=== PATIENT | female | born 1955 | race Caucasian/White ===

== ENCOUNTER 2020-03-16 13:45 | Emergency (ER) | payer MEDICARE, OTHER ==
[~2020-03-16] VITALS: Ht 167.6 cm; Wt 78.0 kg
--- NOTE | 2020-03-16 14:06 | NUR ---
Dr. Valencia at bedside for MSE
--- NOTE | 2020-03-16 14:27 | NUR ---
Patient discharged to home in stable condition. Written and verbal after care instructions given. Patient verbalizes understanding of instructions. Stressed follow up or return to ER for worsening s/s. Patient ambulating with steady gait. NAD noted
[2020-03-16] MEDS ORDERED: LIDOCAINE HCL 2% 20 ML VIAL TP ONE (14:30)
[2020-03-16 14:32] VITALS: BP 126/66
== END 2020-03-16 14:27 | disposition home or self-care (01) ==
LOC: ER 13:56
DX: S01.511A Laceration without foreign body of lip, initial encounter (principal); W18.39XA Other fall on same level, initial encounter; Y92.89 Other specified places as the place of occurrence of the external cause
CPT/HCPCS: 12011; 99282; J3490; A4663

== ENCOUNTER 2020-03-18 15:03 | Emergency (ER) | payer MEDICARE ==
[~2020-03-18] VITALS: Ht 167.6 cm; Wt 78.0 kg
--- NOTE | 2020-03-18 15:24 | NUR ---
Patient discharged to home in stable condition. Written and verbal after care instructions given. Patient verbalizes understanding of instructions. Stressed follow up or return to ER for worsening s/s.
== END 2020-03-18 15:26 | disposition home or self-care (01) ==
LOC: ER 15:03
DX: S01.511D Laceration without foreign body of lip, subsequent encounter (principal); S00.83XD Contusion of other part of head, subsequent encounter; W01.0XXD Fall on same level from slipping, tripping and stumbling without subsequent striking against object, subsequent encounter; M79.7 Fibromyalgia; F41.9 Anxiety disorder, unspecified
CPT/HCPCS: A4663

== ENCOUNTER 2020-03-25 16:52 | Emergency (ER) | payer MEDICARE ==
[~2020-03-25] VITALS: Ht 167.6 cm; Wt 78.0 kg
--- NOTE | 2020-03-25 17:10 | NUR ---
Dr. Ashford at bedside for MSE
[2020-03-25 17:22] VITALS: BP 139/75
== END 2020-03-25 17:20 | disposition home or self-care (01) ==
LOC: ER 16:54
DX: S01.511D Laceration without foreign body of lip, subsequent encounter (principal); W19.XXXD Unspecified fall, subsequent encounter
CPT/HCPCS: A4663

== ENCOUNTER 2022-03-20 16:27 | Emergency (ER) | payer MEDICARE ==
[~2022-03-20] VITALS: Ht 167.6 cm; Wt 68.0 kg
--- NOTE | 2022-03-20 17:31 | NUR ---
[employer] Instructor assumes care: 1st contact with patient in ER bed 3, AOX4, calm & breathing easily. Lab staff [email or web address], drawing her blood. Patient is still for EKG.
[2022-03-20 17:50] LABS: HEMATOCRIT 38.8 % (31.2-41.9); MEAN CORPUSCULAR HEMOGLOBIN 30.3 uug (24.7-32.8); MEAN CORPUSCULAR VOLUME 92.5 fL (75.5-95.3); PLATELET COUNT (AUTO) 321 K/uL (179-408)
[2022-03-20 18:08] LABS: CARBON DIOXIDE 26 mmol/L (21-32); CHLORIDE 104 mmol/L (98-107); GLUCOSE 74 mg/dL (74-106); POTASSIUM 3.8 mmol/L (3.5-5.1); UREA NITROGEN, BLOOD 12 mg/dL (7-18)
[2022-03-20 18:20] LABS: ALANINE AMINOTRANSFERASE 54 U/L (14-59); ALKALINE PHOSPHATASE 69 U/L (50-136); ASPARTATE AMINOTRANSFERASE 72 U/L (15-37); BILIRUBIN,DIRECT 0.1 mg/dL (0.0-0.2); BILIRUBIN,TOTAL 0.5 mg/dL (0.2-1.0); TOTAL PROTEIN, SERUM 7.6 g/dL (6.4-8.2)
[2022-03-20] MEDS ORDERED: CALC3.8S BNOSTRILS (18:26)
--- NOTE | 2022-03-20 19:23 | NUR ---
Patient discharged to home in stable condition. Written and verbal after care instructions given. Patient verbalizes understanding of instructions. Stressed follow up or return to ER for worsening s/s. Patient out of ER with steady gait, no acute signs of distress, VSS, all belongings taken, to be driven home by daughter via private vehicle.
[2022-03-20 19:24] VITALS: BP 115/77
== END 2022-03-20 19:24 | disposition home or self-care (01) ==
LOC: ER 16:27
DX: S09.90XA Unspecified injury of head, initial encounter (principal); T14.8XXA Other injury of unspecified body region, initial encounter; S40.022A Contusion of left upper arm, initial encounter; V49.49XA Driver injured in collision with other motor vehicles in traffic accident, initial encounter; Y92.410 Unspecified street and highway as the place of occurrence of the external cause; E06.3 Autoimmune thyroiditis; R73.03 Prediabetes; E78.00 Pure hypercholesterolemia, unspecified; Z86.03 Personal history of neoplasm of uncertain behavior
CPT/HCPCS: 36415; 70450; 71045; 72125; 72131; 73030; 73080; 73090; 84484; 85025; 85730; 93005; A4663

== ENCOUNTER 2022-08-06 16:31 | Inpatient (IN) | payer MEDICARE, OTHER ==
[~2022-08-06] VITALS: Ht 167.6 cm; Wt 68.0 kg
[~2022-08-06 16:31] MED LIST: CALC3.8S BNOSTRILS
[2022-08-06] MEDS ORDERED: ACETAMINOPHEN ES 500 MG TABLET PO ONE (17:30)
[2022-08-06] MEDS ORDERED: ACETAMINOPHEN ES 500 MG TABLET ONE (17:32)
[2022-08-06] MEDS ORDERED: MECLIZINE HCL 25 MG TABLET PO ONE (19:45)
[2022-08-06] MEDS ORDERED: ACETAMINOPHEN 325 MG TABLET PO ONE (19:45)
[2022-08-06 20:06] LABS: HEMATOCRIT 38.3 % (31.2-41.9); MEAN CORPUSCULAR HEMOGLOBIN 29.3 uug (24.7-32.8); PLATELET COUNT (AUTO) 416 K/uL (179-408)
[2022-08-06 20:26] LABS: BILIRUBIN,TOTAL 0.4 mg/dL (0.2-1.0); CREATININE 0.8 mg/dL (0.6-1.3); POTASSIUM 4.1 mmol/L (3.5-5.1); TOTAL PROTEIN, SERUM 7.3 g/dL (6.4-8.2)
--- NOTE | 2022-08-06 20:34 | NUR ---
Called [facility] for panel call. Dr. Nicole damage prevention coordinator.
[2022-08-06] MEDS ORDERED: MECLIZINE HCL 25 MG TABLET ONE (20:36)
[2022-08-06] MEDS ORDERED: ACETAMINOPHEN 325 MG TABLET ONE ×2 (20:36→20:37)
[2022-08-06] MEDS ORDERED: KETOROLAC TROMETHAMINE 15 MG INJ IVP ONE (20:45)
[2022-08-06] MEDS ORDERED: IV NORMAL SALINE 1000 ML BAG IV ONE (20:45)
[2022-08-06] MEDS ORDERED: KETOROLAC TROMETHAMINE 15 MG INJ ONE (20:54)
[2022-08-06 20:56] LABS: ETHANOL < 3 MG/DL (0-0)
[2022-08-06] MEDS ORDERED: MORPHINE SULFATE 2 MG/1 ML DISP.SYRIN IV PRN (23:30)
[2022-08-06] MEDS ORDERED: MAGNESIUM HYDROXIDE 30 ML LIQUID UDC PO PRN (23:30)
[2022-08-06] MEDS ORDERED: ACETAMINOPHEN 325 MG TABLET PO PRN (23:30)
[2022-08-06] MEDS ORDERED: IV NS 1000 ML 1,000 ML IV PRN (23:30)
[2022-08-06] MEDS ORDERED: ONDANSETRON 4 MG/2 ML VIAL IV PRN (23:30)
--- NOTE | 2022-08-06 23:38 | NUR ---
Patient pulled out IV.
[2022-08-07 00:49] LABS: *BILIRUBIN,URIN NEGATIVE (NEGATIVE); *BLOOD, URINE NEGATIVE (NEGATIVE); *CLARITY,URINE CLEAR (CLEAR); *COLOR,URINE YELLOW (YELLOW); *KETONES,URINE NEGATIVE (NEGATIVE); *UROBILINOGEN,URINE 0.2 E.U./dl (NORMAL); LEUKOCYTE ESTERASE ,URINE NEGATIVE (NEGATIVE); NITRITE, URINE NEGATIVE (NEGATIVE); PH,URINE 5.5 (5.0-8.0); UGLUCOSE NEGATIVE (NEGATIVE)
[2022-08-07 01:01] LABS: *AMPHETAMINE, URINE NEGATIVE (NEGATIVE); *CANNABINOID, URINE POSITIVE (NEGATIVE); *COCCAINE, URINE NEGATIVE (NEGATIVE); *PHENCYCLIDINE SCREEN,URINE NEGATIVE (NEGATIVE)
--- NOTE | 2022-08-07 03:58 | NUR ---
Patient is in room sleeping
[2022-08-07] MEDS ORDERED: HYDROCODONE/APAP 5-325MG TABLET ONE ×2 (04:20→08:59)
[2022-08-07] MEDS: HYDROCODONE/APAP 5-325MG TABLET PO PRN ×3 (04:29→23:15)
[2022-08-07] MEDS ORDERED: PANTOPRAZOLE SODIUM 40 MG TABLET.DR PO ONE (07:15)
[2022-08-07] MEDS: PANTOPRAZOLE SODIUM 40 MG TABLET.DR PO SCH (07:19)
--- NOTE | 2022-08-07 07:20 | NUR ---
Gave report to Jarad SALAZAR.
[2022-08-07 07:56] LABS: HEMATOCRIT 37.6 % (31.2-41.9); MEAN CORPUSCULAR HEMOGLOBIN 29.9 uug (24.7-32.8); MEAN CORPUSCULAR VOLUME 91.4 fL (75.5-95.3); PLATELET COUNT (AUTO) 397 K/uL (179-408)
[2022-08-07 07:57] LABS: THYROID STIMULATING HORMONE 0.611 mIU/mL (0.358-3.740)
[2022-08-07 08:11] LABS: BILIRUBIN,TOTAL 0.4 mg/dL (0.2-1.0); CREATININE 0.8 mg/dL (0.6-1.3); MAGNESIUM 2.1 mg/dL (1.8-2.4); PHOSPHOROUS 4.1 mg/dL (2.5-4.9); POTASSIUM 4.2 mmol/L (3.5-5.1); TOTAL PROTEIN, SERUM 6.5 g/dL (6.4-8.2)
--- NOTE | 2022-08-07 10:16 | NUR ---
Gave pt breakfast tray.
[2022-08-07] MEDS ORDERED: LEVO100T10 PO (11:38)
[2022-08-07] MEDS ORDERED: TIZA4TAB5 PO (11:42)
[2022-08-07] MEDS ORDERED: LAMO200T10 PO (11:42)
[2022-08-07] MEDS ORDERED: CLON2TAB11 PO (11:42)
--- NOTE | 2022-08-07 13:20 | NUR ---
Assisted pt to restroom. Gave pt lunch tray. Pt resting in bed, no further complaints -- pain 5/10, acceptable.
[2022-08-07] MEDS ORDERED: ACETAMINOPHEN 325 MG TABLET ONE (15:04)
--- NOTE | 2022-08-07 15:15 | NUR ---
Pt sleeping in bed, no distress noted.
--- NOTE | 2022-08-07 17:28 | NUR ---
Gave pt dinner tray. Called to 3rd floor for room, assigned pt to 325. Will call report shortly
--- NOTE | 2022-08-07 18:22 | NUR ---
Gave Report to MARTIN Lugo for inpatient services. Safety measures in place. Will continue to monitor.
--- NOTE | 2022-08-07 19:01 | NUR ---
Gave shift report to Dariusz (MARTIN). Informed him of Pt transfer to Rm 325.
[2022-08-07 20:00] VITALS: BP 156/81
--- NOTE | 2022-08-07 20:10 | NUR ---
PATIENT ADMITTED FROM ER IN STABLE CONDITION. AOX4 AND ABLE TO MAKE NEEDS KNOWN. GENTLY TRANSFER TO BED AND MADE COMFORTABLE. ALL NEEDS MET AND ATTENDED. BELONGINGS INVENTORIED. WILL CONTINUE TO MONITOR.
[2022-08-07] MEDS ORDERED: DOCUSATE SODIUM 100 MG CAPSULE PO SCH (21:00)
[2022-08-08] VITALS: BP 116/62
[2022-08-08 04:00] VITALS: BP 128/76
--- NOTE | 2022-08-08 06:20 | NUR ---
patient rested well during the shift. no sob or resp distress noted. iv fluids infusing via iv on RH #20G. pain medication requested by patient for pain in right leg and back 11/07. pain meds given as ordered and noted effective. patient is ambulatory. ao x4 and able to make needs known. all needs met and attended. will endorse to day shift.
[2022-08-08] MEDS: PANTOPRAZOLE SODIUM 40 MG TABLET.DR PO SCH ×2 (06:52→06:55)
[2022-08-08 07:20] LABS: CREATININE 0.8 mg/dL (0.6-1.3); MAGNESIUM 2.1 mg/dL (1.8-2.4); PHOSPHOROUS 3.5 mg/dL (2.5-4.9); POTASSIUM 4.1 mmol/L (3.5-5.1)
[2022-08-08 07:22] LABS: MEAN CORPUSCULAR HEMOGLOBIN 29.6 uug (24.7-32.8); MEAN CORPUSCULAR VOLUME 91.5 fL (75.5-95.3); PLATELET COUNT (AUTO) 389 K/uL (179-408)
--- NOTE | 2022-08-08 12:00 | NUR ---
PT IS DISCHARGE. PT AOX4. HEMODYNAMICALLY STABLE. NO DISTRESS NOTED. NO PAIN NOR DIZZINESS NOTED. PT AMBULATORY WITH STEADY GAIT. SELF CARE. DAUGHTER AT BEDSIDE. EXIT CARE PROVIDED. PT IS GOING HOME VIA PRIVATE CAR WITH HER DAUGHTER. IV ACCESS REMOVED. PT REFUSED WHEELCHAIR GOING DOWN THE LOBBY. ALL BELONGINGS ACCOUNTED FOR.
== END 2022-08-08 12:00 | disposition home or self-care (01) | DRG 914 ==
LOC: ER 16:31 → TRANSITION 23:45 → TELE3 08-07 17:23
PROVIDERS: ADMIT Registered Nurse; ATTEND Registered Nurse
DX: S09.93XA Unspecified injury of face, initial encounter (principal); F12.929 Cannabis use, unspecified with intoxication, unspecified; W01.0XXA Fall on same level from slipping, tripping and stumbling without subsequent striking against object, initial encounter; Y93.01 Activity, walking, marching and hiking; Y92.481 Parking lot as the place of occurrence of the external cause; R42 Dizziness and giddiness; I25.10 Atherosclerotic heart disease of native coronary artery without angina pectoris; F41.9 Anxiety disorder, unspecified; E78.5 Hyperlipidemia, unspecified; S00.31XA Abrasion of nose, initial encounter; Z20.822 Contact with and (suspected) exposure to COVID-19; E06.3 Autoimmune thyroiditis; S06.0X0A Concussion without loss of consciousness, initial encounter; R40.2362 Coma scale, best motor response, obeys commands, at arrival to emergency department; R40.2142 Coma scale, eyes open, spontaneous, at arrival to emergency department; R40.2252 Coma scale, best verbal response, oriented, at arrival to emergency department; F19.90 Other psychoactive substance use, unspecified, uncomplicated
CPT/HCPCS: 36415; 70450; 70486; 71045; 72125; 83550; 83735; 84100; 84443; 84484; 85025; 93005; A4663; A9150; G0378; G0480; J1885; J7040; J8597